=== PATIENT | male | born 2000 | race Caucasian/White ===

== ENCOUNTER 2021-02-06 15:58 | Emergency (ER) | payer OTHER ==
[~2021-02-06 15:58] MED LIST: IBUPROFEN600 MG PO; NORFLEX 100 MG100 MG PO
[2021-02-06] MEDS ORDERED: NAPROSYN500 MG PO (19:21)
[2021-02-06] MEDS ORDERED: CYCLOBENZAPRINE10 MG PO (19:21)
== END 2021-02-06 19:36 | disposition home or self-care (01) ==
LOC: ER1 15:58
DX: S39.012A Strain of muscle, fascia and tendon of lower back, initial encounter (principal); S16.1XXA Strain of muscle, fascia and tendon at neck level, initial encounter; F17.200 Nicotine dependence, unspecified, uncomplicated; V49.40XA Driver injured in collision with unspecified motor vehicles in traffic accident, initial encounter; Y92.410 Unspecified street and highway as the place of occurrence of the external cause
CPT/HCPCS: 72125; 72131; 72170; 99284; J1885

== ENCOUNTER 2021-12-05 08:29 | Emergency (ER) | payer OTHER ==
[~2021-12-05 08:29] MED LIST changes: +CYCLOBENZAPRINE10 MG PO; +NAPROSYN500 MG PO
== END 2021-12-05 09:13 | disposition home or self-care (01) ==
LOC: ER1 08:29
DX: S50.12XA Contusion of left forearm, initial encounter (principal); F17.200 Nicotine dependence, unspecified, uncomplicated; W22.8XXA Striking against or struck by other objects, initial encounter
CPT/HCPCS: 73090; 99283

== ENCOUNTER 2022-01-11 13:25 | Emergency (ER) | payer OTHER ==
[2022-01-11 14:39] LABS: HEMOGLOBIN 16.4 gm/dl (14.0-17.5); RED BLOOD COUNT 5.21 M/UL (4.20-5.50); WHITE BLOOD COUNT 6.3 K/UL (4.5-11.0)
[2022-01-11 15:01] LABS: BUN/CREATININE RATIO 19 (0-10)
== END 2022-01-11 17:22 | disposition home or self-care (01) ==
LOC: ER1 13:25
PROVIDERS: Physician Assistant
DX: E86.0 Dehydration (principal); F17.210 Nicotine dependence, cigarettes, uncomplicated; Z71.6 Tobacco abuse counseling; Z20.822 Contact with and (suspected) exposure to COVID-19
CPT/HCPCS: 0240U; 71045; 80048; 81001; 85025; 96374; 99285; J1885